=== PATIENT | female | born 1975 | race Caucasian/White ===

== ENCOUNTER 2021-08-31 19:30 | Emergency (ER) | payer OTHER ==
[2021-08-31 20:06] VITALS: BP 135/84; PULSE 78; TEMP 97.9; BMI 29.7
== END 2021-08-31 20:22 | disposition home or self-care (01) ==
LOC: JER 19:30
DX: R05.1 Acute cough (principal); Z11.52 Encounter for screening for COVID-19
CPT/HCPCS: 99283-25; C9803; U0003; U0005